=== PATIENT | female | born 1960 | race Caucasian/White ===

== ENCOUNTER 2018-06-20 13:09 | Emergency (ER) | payer OTHER ==
[~2018-06-20] VITALS: Ht 170.2 cm; Wt 64.3 kg
[~2018-06-20 13:09] MED LIST: ASPI-496 PO; NAPR220C2 PO
[2018-06-20 13:12] VITALS: BP 155/98
== END 2018-06-20 15:16 | disposition home or self-care (01) ==
LOC: ED 15:05
DX: S06.320A Contusion and laceration of left cerebrum without loss of consciousness, initial encounter (principal); S62.347A Nondisplaced fracture of base of fifth metacarpal bone, left hand, initial encounter for closed fracture; J45.909 Unspecified asthma, uncomplicated; Z90.89 Acquired absence of other organs; W01.0XXA Fall on same level from slipping, tripping and stumbling without subsequent striking against object, initial encounter; Y93.89 Activity, other specified; Y92.410 Unspecified street and highway as the place of occurrence of the external cause; Y99.8 Other external cause status
CPT/HCPCS: 29125; 70450; 99284

== ENCOUNTER 2020-01-11 11:47 | Day surgery (SDC) | payer OTHER ==
[~2020-01-11] VITALS: Ht 170.2 cm; Wt 62.7 kg
[~2020-01-11 11:47] MED LIST changes: +ALBU8.5H8 INH; +CHOL10003 PO; +MAGN71.5 PO; +SALM1CAP2 PO
[2020-01-11] MEDS ORDERED: LIDOCAINE/PF 1%-EPI 1:200K, 30 ML ONE (12:23)
[2020-01-11] MEDS ORDERED: ROPIvacaine/PF 0.5%, 30 ML ONE (12:23)
[2020-01-11] MEDS ORDERED: CHLORHEXIDINE 15 ML UDC MM ONE (12:30)
[2020-01-11] MEDS ORDERED: LACTATED RINGERS 1,000 ML IV SCH (12:30)
[2020-01-11 12:33] VITALS: BP 137/90
[2020-01-11] MEDS ORDERED: CHLORHEXIDINE 15 ML UDC ONE (12:40)
[2020-01-11] MEDS ORDERED: MIDAZOLAM 1 MG/ML, 2ML ONE (13:33)
[2020-01-11] MEDS ORDERED: FENTANYL PF 250 MCG/5ML ONE (13:33)
[2020-01-11] MEDS ORDERED: PROPOFOL 10 MG/ML, 20ML ONE (13:35)
[2020-01-11] MEDS ORDERED: ONDANSETRON 2MG/ML, 2ML ONE (13:35)
[2020-01-11] MEDS ORDERED: DEXAMETHASONE 4 MG/ML, 1ML ONE (13:35)
[2020-01-11] MEDS ORDERED: CEFAZOLIN 1,000 MG ONE (13:35)
[2020-01-11] MEDS ORDERED: KETOROLAC 30 MG/1 ML ONE (13:35)
[2020-01-11] MEDS ORDERED: LIDOCAINE-MPF 2% ,5ML ONE (14:02)
[2020-01-11] MEDS ORDERED: OXYcodone 5 MG/5 ML ORAL.SOL UDC PO PRN (15:00)
[2020-01-11] MEDS ORDERED: LABETALOL 5MG/ML, 20ML IV PRN (15:00)
[2020-01-11] MEDS ORDERED: ALBUTEROL SULFATE 2.5 MG/3 ML NPPB PRN (15:00)
[2020-01-11] MEDS ORDERED: hydrALAzine 20 MG/ML, 1ML IV PRN (15:00)
[2020-01-11] MEDS ORDERED: FENTANYL PF 100 MCG/2ML IV PRN (15:00)
[2020-01-11] MEDS ORDERED: ACETAMINOPHEN 325 MG TABLET PO PRN (15:00)
[2020-01-11] MEDS ORDERED: PROMETHAZINE 25 MG/ML, 1ML IVPush PRN (15:00)
[2020-01-11] MEDS ORDERED: MIDAZOLAM 1 MG/ML, 2ML IV PRN (15:00)
== END 2020-01-11 16:00 | disposition home or self-care (01) ==
LOC: OUT 11:47
PROVIDERS: ATTEND Orthopaedic Surgery
DX: S83.232A Complex tear of medial meniscus, current injury, left knee, initial encounter (principal); Z11.59 Encounter for screening for other viral diseases; M22.42 Chondromalacia patellae, left knee; M32.9 Systemic lupus erythematosus, unspecified; M06.9 Rheumatoid arthritis, unspecified; J45.909 Unspecified asthma, uncomplicated; K21.9 Gastro-esophageal reflux disease without esophagitis; Z79.82 Long term (current) use of aspirin; Z79.899 Other long term (current) drug therapy; Z88.0 Allergy status to penicillin; Z88.5 Allergy status to narcotic agent; Z88.8 Allergy status to other drugs, medicaments and biological substances; Z82.61 Family history of arthritis; Z82.3 Family history of stroke; X58.XXXA Exposure to other specified factors, initial encounter; Y93.39 Activity, other involving climbing, rappelling and jumping off; Y92.73 Farm field as the place of occurrence of the external cause; Y99.8 Other external cause status
CPT/HCPCS: 29881; J0690; J1100; J1885; J2250; J2405; J2704; J2795; J3010; J3490; J7120; U0001